=== PATIENT | female | born 1970 | race Caucasian/White ===

== ENCOUNTER 2021-07-26 08:50 | Outpatient (CLI) | payer BC | END 2021-07-26 08:51 | disposition home or self-care (01) | LOC: CSHRAD 08:50 | PROVIDERS: ATTEND Family Medicine | DX: M25.552 Pain in left hip (principal) ==

== ENCOUNTER 2021-09-28 16:49 | Outpatient (CLI) | payer OTHER, SELFPAY | END 2021-09-28 16:50 | disposition home or self-care (01) | LOC: CSHRAD 16:49 | PROVIDERS: ATTEND Family Medicine | DX: M79.672 Pain in left foot (principal); S92.512A Displaced fracture of proximal phalanx of left lesser toe(s), initial encounter for closed fracture ==

== ENCOUNTER 2021-11-24 07:36 | Outpatient (CLI) | payer BC | END 2021-11-24 07:37 | disposition home or self-care (01) | LOC: CSHCT 07:36 | PROVIDERS: ATTEND Family Medicine | DX: R09.02 Hypoxemia (principal); J44.9 Chronic obstructive pulmonary disease, unspecified | CPT/HCPCS: 71260 ==

== ENCOUNTER 2024-03-24 01:04 | Observation (INO) | payer BC, SELFPAY ==
[2024-03-24] MEDS ORDERED: methylPREDNISolone Sod Succ/PF 125 MG/2 ML VIAL ONE (01:25)
[2024-03-24] MEDS ORDERED: Magnesium 2 GM/50 ML BAG (IN WATER) ONE (01:26)
[2024-03-24] MEDS ORDERED: Ipratropium/Albuterol 3 ML NEB ONE (01:31)
[2024-03-24 01:48] LABS: #Basophils 0.09 10x3/uL (0.0-0.2); #Eosinophils 0.08 10x3/uL (0.0-0.5); #Monocytes 0.43 10x3/uL (0.0-1.1); %Basophils 1.7 % (0.0-2.0); %Eosinophils 1.5 % (0.0-6.0); %Lymphocytes 44.4 % (18.0-47.0); %Monocytes 7.9 % (0.0-10.0); %Neutrophils 44.3 % (40.0-75.0); Hematocrit 41.6 % (34.9-44.5); Hemoglobin 12.8 g/dL (12.0-15.5); Mean Corpuscular HGB CONC 30.8 g/dL (32.0-36.0); Mean Corpuscular Hemoglobin 22.2 pg (27.0-33.0); Mean Corpuscular Volume 72.1 fL (81.6-98.3); Mean Platelet Volume 8.9 fL (7.4-10.4); Platelet Count 233 10x3/uL (150-450); RBC Distribution Width 19.3 % (11.5-14.5); Red Blood Cell (RBC) Count 5.77 10x6/uL (3.90-5.03); White Blood Cell (WBC) Count 5.4 10x3/uL (3.5-10.5)
[2024-03-24 02:03] LABS: ALT (SGPT) 38 U/L (8-55); AST (SGOT) 47 U/L (5-34); Albumin 3.6 g/dL (3.5-5.0); Alkaline Phosphatase 71 U/L (40-110); Anion Gap 19 mmol/L (10-20); BUN (Urea Nitrogen) 4 mg/dL (9.8-20.1); Bilirubin, Total 0.3 mg/dL (0.2-1.2); Calc. Creatinine Clearance 0 mL/min (70-130); Calcium 9.1 mg/dL (7.8-10.44); Carbon Dioxide 17 mmol/L (22-29); Chloride 101 mmol/L (98-107); Estimated GFR 109; Globulin 4.1 g/dL (2.4-3.5); Glucose 92 mg/dL (70-105); Potassium 3.8 mmol/L (3.5-5.1); Protein, Total 7.7 g/dL (6.0-8.3); Sodium 133 mmol/L (136-145)
[2024-03-24 02:09] LABS: Troponin I Less than 0.010 ng/mL (< 0.028)
[2024-03-24] MEDS ORDERED: Metoprolol Tartrate 5 MG (5 mL) VIAL ONE (02:47)
[2024-03-24 04:55] LABS: Microcytosis SLIGHT = 6-15 cells (100X) (0-5/hpf); Platelet Adequacy Comment Appears Adequate
[2024-03-24] MEDS ORDERED: Acetaminophen 650 MG Suppository PR PRN (05:00)
[2024-03-24] MEDS ORDERED: Ondansetron ODT 4 MG TAB PO PRN (05:00)
[2024-03-24] MEDS ORDERED: Ondansetron PF 4 MG/2 ML Vial IVP PRN (05:00)
[2024-03-24] MEDS ORDERED: Acetaminophen 325 MG TAB PO PRN (05:00)
[2024-03-24] MEDS ORDERED: Ventolin HFA Inhaler 60 PUFF INHALER INH PRN (05:06)
[2024-03-24 05:23] LABS: Phosphorus 3.4 mg/dL (2.3-4.7)
[2024-03-24] MEDS ORDERED: Lorazepam 2 MG/ML VIAL IM PRN (05:36)
[2024-03-24] MEDS ORDERED: Lorazepam 1 MG TAB PO PRN (05:36)
[2024-03-24] MEDS ORDERED: Electrolyte Replacement Protocol 1 EACH FS PRN (05:45)
[2024-03-24] MEDS ORDERED: dilTIAZem 25 MG/5 ML VIAL ONE (06:17)
[2024-03-24 06:59] LABS: Troponin I Less than 0.010 ng/mL (< 0.028)
[2024-03-24] MEDS ORDERED: Carvedilol 25 MG TAB ONE (08:25)
[2024-03-24] MEDS ORDERED: Apixaban 5 MG TAB ONE (08:26)
[2024-03-24] MEDS ORDERED: Pantoprazole DR 40 MG TAB ONE (08:27)
[2024-03-24] MEDS ORDERED: Thiamine HCl 200 MG/2 ML VIAL ONE (08:29)
[2024-03-24] MEDS ORDERED: Digoxin 0.125 MG TAB ONE (08:30)
[2024-03-24] MEDS ORDERED: Folic Acid 1 MG TAB ONE (08:30)
[2024-03-24 08:43] VITALS: BMI 28.3
[2024-03-24] MEDS: Apixaban 5 MG TAB PO SCH (09:05)
[2024-03-24] MEDS: Pantoprazole DR 40 MG TAB PO SCH (09:05)
[2024-03-24] MEDS: Carvedilol 25 MG TAB PO SCH (09:05)
[2024-03-24] MEDS: Thiamine HCl 200 MG/2 ML VIAL SLOW IVP SCH (09:05)
[2024-03-24] MEDS: Multivit, Therapeutic 1 TAB PO SCH (09:05)
[2024-03-24] MEDS: Folic Acid 1 MG TAB PO SCH (09:05)
[2024-03-24] MEDS: Digoxin 0.125 MG TAB PO SCH (09:05)
[2024-03-24] MEDS: dilTIAZem CD 180 MG CAP PO SCH (09:05)
[2024-03-24] MEDS: dilTIAZem 25 MG/5 ML VIAL SLOW IVP SCH (09:06)
[2024-03-24 10:04] LABS: Troponin I Less than 0.010 ng/mL (< 0.028)
[2024-03-24 14:03] VITALS: BP 142/76; TEMP 98.3
[2024-03-24] MEDS ORDERED: Amiodarone 200 MG TAB PO SCH (21:00)
[2024-03-25] MEDS ORDERED: Lorazepam 1 MG TAB PO PRN (05:36)
[2024-03-26] MEDS ORDERED: Lorazepam 1 MG TAB PO PRN (05:36)
[2024-03-27] MEDS ORDERED: Lorazepam 0.5 MG TAB PO PRN (05:36)
[2024-03-27] MEDS ORDERED: Thiamine 100 MG TAB PO SCH (06:00)
== END 2024-03-24 14:38 | disposition home or self-care (01) ==
LOC: CSHERS 01:04 → SUATTDRO 01:04 → CSHERHOLD 05:00
PROVIDERS: ADMIT Family Medicine; ATTEND Internal Medicine
PROC: 5A2204Z Restoration of Cardiac Rhythm, Single (ICD-10-PCS; principal; 2024-03-24)
DX: I48.0 Paroxysmal atrial fibrillation (principal); E11.9 Type 2 diabetes mellitus without complications; J44.9 Chronic obstructive pulmonary disease, unspecified; I10 Essential (primary) hypertension; I48.92 Unspecified atrial flutter; F10.90 Alcohol use, unspecified, uncomplicated; F17.210 Nicotine dependence, cigarettes, uncomplicated; Z90.89 Acquired absence of other organs; Z98.890 Other specified postprocedural states; F17.200 Nicotine dependence, unspecified, uncomplicated; Z79.51 Long term (current) use of inhaled steroids; Z79.01 Long term (current) use of anticoagulants; Z79.899 Other long term (current) drug therapy; Z88.2 Allergy status to sulfonamides; Y90.9 Presence of alcohol in blood, level not specified
CPT/HCPCS: 36415; 71045; 80053; 80162; 83735; 83880; 84100; 84484; 85025; 87428; 92960; 93005; 94640; 94760; 96374; 96375; G0378; J2919; J3411; J3475; J7620